=== PATIENT | male | born 1945 | race Caucasian/White ===

== ENCOUNTER → 2020-12-05 10:46 | Outpatient (BNVA) | payer MEDICARE, OTHER, SELFPAY | PROVIDERS: Family Provider Family Medicine; Visit Provider Surgery | DX: Z01.812 Encounter for preprocedural laboratory examination (principal); Z20.822 Contact with and (suspected) exposure to COVID-19 | CPT/HCPCS: 87635 ==

== ENCOUNTER 2020-12-08 06:38 | Day surgery (SDC) | payer MEDICARE, OTHER, SELFPAY ==
[2020-12-06 14:01] VITALS: BMI 25.7
--- NOTE | 2020-12-08 07:09 | ANES.PREANE2 ---
Pre-Anesthetic Assessment Pre-Anesthetic Assessment: Height/Weight: Height 1.88 m Weight 90.718 kg Proposed Procedure: Operation Date: 12/08/20 08:00 Proposed Procedures p Colonoscopy [id number](Not Applicable) - Talib Baker MD Was Beta Randall taken within 24 hours: N/A Was Clonidine taken within 24 hours: N/A Social: Social History: No alcohol and No tobacco Exam: Pre-Anes Outpt Exam: alert, oriented x 3, clear to auscultation bilaterally and regular rate & rhythm Airway: Submandibular: WNL Cervical ROM: WNL MP: 2 Dentition: Full CV/HEM: CV/HEM: HTN GI: GI: GERD Metabolic: Metabolic: DM Anesthetic Plan: ASA status: 3 Anesthesia: MAC Risk of > 500 ml blood loss (7ml/kg in children): No Data Anesthesia Cardiac Studies: No Data to Display
[2020-12-08 07:22] VITALS: BP 147/86; PULSE 70; RESP 18; TEMP 36.2; O2SAT 97
[2020-12-08] MEDS: sodium chloride 0.9% 1,000 ML 30 ML IV (07:24)
[2020-12-08 07:30] LABS: Glucose Point of Care 117 mg/dL (70-110)
--- NOTE | 2020-12-08 08:11 | W.PM.OPSUD ---
Surgery/Procedure H&P Update DATE OF PROCEDURE: December 08, 2020 DATE H&P PERFORMED: 11/15/20 H&P UPDATE INFORMATION: No changes to prior documentation PLANNED PROCEDURE: Operation Date: 12/08/20 08:00 Proposed Procedures p Colonoscopy [id number](Not Applicable) - Talib Baker MD
[2020-12-08 08:49] VITALS: BP 126/72; PULSE 67; RESP 18; TEMP 36.2; O2SAT 94
[2020-12-08 09:04] VITALS: BP 117/75; PULSE 65; RESP 18; O2SAT 95
--- NOTE | 2020-12-08 13:10 | ANE.PACU2 ---
Inpatient post-anesthesia follow up: Airway intact: Yes Vital signs: Temperature 97.2 F Pulse Rate 65 Respiratory Rate 18 Blood Pressure 117/75 Pulse Oximetry 95 Oxygen Delivery Me thod Room Air Oxygen Flow Rate Fraction of Inspir ed Oxygen Hydration adequate: Yes Nausea and vomiting: No Pain level: 1 Mental status: Baseline
== END 2020-12-08 09:34 | disposition home or self-care (01) ==
PROVIDERS: Visit Provider Surgery
PROC: 0DJD8ZZ Inspection of Lower Intestinal Tract, Via Natural or Artificial Opening Endoscopic (ICD-10-PCS; CPT 45378; principal; 2020-12-08 08:00)
DX: Z12.11 Encounter for screening for malignant neoplasm of colon (principal); Z86.010 Personal history of colon polyps; D12.4 Benign neoplasm of descending colon; K57.30 Diverticulosis of large intestine without perforation or abscess without bleeding; K64.8 Other hemorrhoids; I10 Essential (primary) hypertension; K21.9 Gastro-esophageal reflux disease without esophagitis; E11.9 Type 2 diabetes mellitus without complications
CPT/HCPCS: 12345; 36416; 45384; 82962; 88305; 96360; J2704; J7030

== ENCOUNTER → 2021-01-18 09:33 | Outpatient (BNVA) | payer MEDICARE, OTHER, SELFPAY | PROVIDERS: PCP Internal Medicine; Referring Provider Internal Medicine; Visit Provider Anesthesiology Pain Medicine | DX: M51.17 Intervertebral disc disorders with radiculopathy, lumbosacral region (principal); M19.011 Primary osteoarthritis, right shoulder; M54.2 Cervicalgia | CPT/HCPCS: 99204 ==

== ENCOUNTER → 2021-02-01 09:19 | Outpatient (BNVA) | payer MEDICARE, OTHER, SELFPAY | PROVIDERS: PCP Internal Medicine; Visit Provider Urology | DX: Z12.5 Encounter for screening for malignant neoplasm of prostate (principal); N52.1 Erectile dysfunction due to diseases classified elsewhere; N48.6 Induration penis plastica | CPT/HCPCS: 81003; G0103 ==

== ENCOUNTER 2021-02-06 07:54 | Outpatient (CLI) | payer MEDICARE, OTHER, SELFPAY ==
--- NOTE | 2021-02-06 08:05 | MR_ITS ---
WS: [id number] MRI CERVICAL SPINE NONCONTRAST TECHNIQUE: Sagittal T1, T2 and STIR imaging. Axial T2, gradient, and fiesta imaging. CLINICAL INFORMATION: PAIN COMPARISON: None. FINDINGS: Straightening of the normal cervical lordosis. Slight anterolisthesis C4 on C5. C2-C3: Mild facet arthropathy. Spinal canal and foramen are patent. C3-C4: Moderate left facet arthropathy. Moderate left bony foraminal narrowing. Right foramen is murillo nt. C4-C5: Slight anterolisthesis C4 on C5 with moderate central canal stenosis. Moderate facet arthropat hy. Moderate right and mild left bony foraminal narrowing. C5-C6: Mild disc bulging and osteophytic ridging. Moderate bilateral bony foraminal narrowing left gr eater than right. Moderate left facet arthropathy. Mild to moderate central canal stenosis. Edema wit hin the articulating facets at right C4-5 consistent with synovitis/degenerative change. C6-C7: Disc osteophyte complex with endplate ridging. Slight contact of the cervical cord. Mild to mo derate central canal stenosis. Moderate right and mild left bony foraminal narrowing. C7-T1: Osteophytic ridging. Spinal canal and foramen are patent. Visualized brain stem structures: Normal. Prevertebral soft tissues: Normal. MR/MR cervical spin wo con* [id number] IMPRESSION: 1. Straightening of the normal cervical lordosis. Cord signal is normal. Grade 1 anterolisthesis L4 on C5. 2. Mild to moderate central canal stenosis C4-5, C5-6, and C6-C7. 3. Moderate bony foraminal narrowing worse at left C3-4, right C4-5, left C5-6 and right C6-7. 4. Edema within the articulating facets at right C4-5 consistent with synoviti s/degenerative change.
--- NOTE | 2021-02-06 08:45 | XR_ITS ---
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 FINDINGS: Moderate degenerative arthritis AC joint. No acute fractures. Moderate rotator cuff arthropathy with narrowing of the subacromial space. Normal glenoid. XR/XR shoulder RT min 2V* [id number] IMPRESSION: Moderate degenerative arthritis AC joint with rotator cuff arthropathy.
--- NOTE | 2021-02-06 09:15 | XR_ITS ---
WS: [id number] CERVICAL SPINE FLEXION EXTENSION TECHNIQUE: 3 views of the cervical spine: lateral neutral, flexion and extension views. CLINICAL INFORMATION: M54.12 - Radiculopathy, cervical region COMPARISON: None. FINDINGS: Straightening of the normal cervical lordosis in the neutral view. Grade 1 anterolisthesis C4 on C5 m easuring 3.7 mm. This increases slightly on flexion to 3.8 mm and decreases on extension. Ankylosis a cross the C3-4 disc space. Disc space narrowing worse at C5-C6 and C6-C7. Posterior elements are normal. No other significant findings. XR/XR cervical spine fl/ex [id number] IMPRESSION: 1. Moderate spondylitic changes cervical spine. 2. Mild flexion instability at C4-C5. 3. Disc space narrowing worse at C5-C6 and C6-C7.
== END 2021-02-06 07:55 | disposition home or self-care (01) ==
PROVIDERS: PCP Internal Medicine; Visit Provider Anesthesiology Pain Medicine
DX: M54.2 Cervicalgia (principal); M54.12 Radiculopathy, cervical region; M19.011 Primary osteoarthritis, right shoulder; M53.2X2 Spinal instabilities, cervical region; M48.02 Spinal stenosis, cervical region
CPT/HCPCS: 72040; 72141; 73030

== ENCOUNTER → 2021-02-16 09:11 | Outpatient (BNVA) | payer MEDICARE, OTHER, SELFPAY | PROVIDERS: PCP Internal Medicine; Visit Provider Anesthesiology Pain Medicine | DX: M54.12 Radiculopathy, cervical region (principal); M19.019 Primary osteoarthritis, unspecified shoulder; M25.511 Pain in right shoulder | CPT/HCPCS: 99214 ==

== ENCOUNTER 2023-01-30 13:41 | Outpatient (CLI) | payer MEDICARE, OTHER, SELFPAY ==
[2023-01-30 14:53] LABS: PSA Screen - Urology 1.88 ng/mL (0-4)
== END 2023-01-30 13:42 | disposition home or self-care (01) ==
LOC: LAB 13:44
PROVIDERS: PCP Internal Medicine; Visit Provider Urology
DX: Z12.5 Encounter for screening for malignant neoplasm of prostate (principal)
CPT/HCPCS: 36415; G0103

== ENCOUNTER → 2023-02-05 08:02 | Outpatient (BNVA) | payer MEDICARE, OTHER, SELFPAY | PROVIDERS: PCP Internal Medicine; Visit Provider Urology | DX: N48.6 Induration penis plastica; Z12.5 Encounter for screening for malignant neoplasm of prostate; N52.1 Erectile dysfunction due to diseases classified elsewhere | CPT/HCPCS: 81003; 99213 ==